=== PATIENT | female | born 1990 | race Caucasian/White ===

== ENCOUNTER 2019-05-02 10:59 | Inpatient (IN) | payer MEDICAID ==
[2019-05-02 12:04] LABS: ADD MAN DIFF? NO
[2019-05-02 12:26] LABS: WHITE BLOOD COUNT 10.7 10^3/ul (4.8-10.8)
[2019-05-02 12:26] LABS: BASOPHILS % 0.4 % (0.0-2.0); EOSINOPHILS # 0.1 10^3/ul (0.0-0.5); EOSINOPHILS % 0.6 % (0.0-7.0); HEMATOCRIT 39.1 % (37.0-47.0); HEMOGLOBIN 13.8 g/dl (12.0-16.0); LYMPHOCYTES # 2.5 10^3/ul (0.8-2.9); LYMPHOCYTES % 23.5 % (15.0-51.0); MEAN CORPUSCULAR HEMOGLOBIN 30.7 pg (29.0-33.0); MEAN CORPUSCULAR HGB CONC 35.3 g/dl (32.0-37.0); MEAN CORPUSCULAR VOLUME 87.1 fl (82.0-101.0); MONOCYTE # 0.9 10^3/ul (0.3-0.9); MONOCYTES % 8.1 % (0.0-11.0); NEUTROPHIL # 7.1 10^3/ul (1.6-7.5); NEUTROPHILS % 66.6 % (39.0-77.0); PLATELET COUNT 186 10^3/UL (140-415); RED BLOOD COUNT 4.49 10^6/ul (4.20-5.40); RED CELL DISTRIBUTION WIDTH 13.7 % (11.5-14.5)
[2019-05-02 12:29] LABS: ADD UMIC YES; UR ASCORBIC ACID 40 mg/dL (NEGATIVE); UR BACTERIA FEW /HPF (NONE SEEN); UR BILIRUBIN (Dip) NEGATIVE (NEGATIVE); UR BLOOD (Dip) NEGATIVE (NEGATIVE); UR CLARITY SLIGHTLY CLOUDY (CLEAR); UR COLOR AMBER (YELLOW); UR GLUCOSE (Dip) NEGATIVE (NEGATIVE); UR KETONES (Dip) NEGATIVE (NEGATIVE); UR LEUKOCYTE ESTERASE (Dip) NEGATIVE Leu/ul (NEGATIVE); UR MUCUS MODERATE /HPF (NONE SEEN); UR NITRITE (Dip) NEGATIVE (NEGATIVE); UR RBC 3 /HPF (0-5); UR SPECIFIC GRAVITY (Dip) 1.027 (1.003-1.030); UR SQUAMOUS EPITHELIAL CELL FEW /HPF (FEW); UR TOTAL PROTEIN (Dip) 3+ mg/dl (NEGATIVE); UR UROBILINOGEN (Dip) NEGATIVE (NEGATIVE); UR WBC 8 /HPF (0-5)
[2019-05-02 12:31] LABS: ALANINE AMINOTRANSFERASE 21 IU/L (13-69); ALBUMIN 3.2 g/dl (3.3-4.9); ALBUMIN/GLOBULIN RATIO 1.03; ALKALINE PHOSPHATASE 110 IU/L (42-121); ANION GAP 8 (5-13); ASPARTATE AMINO TRANSFERASE 25 IU/L (15-46); BILIRUBIN,INDIRECT 0.3 mg/dl (0-1.1); BILIRUBIN,TOTAL 0.3 mg/dl (0.2-1.3); BLOOD UREA NITROGEN 8 mg/dl (7-20); CALCIUM 9.1 mg/dl (8.4-10.2); CARBON DIOXIDE 21 mmol/L (21-31); CHLORIDE 109 mmol/L (97-110); CREATININE 0.57 mg/dl (0.44-1.00); Estimated GFR > 60 mL/min (>60); GLUCOSE 87 mg/dl (70-220); INR 0.82; POTASSIUM 4.5 mmol/L (3.5-5.1); PROTIME 11.4 Sec (11.9-14.9); PT RATIO 0.9; SODIUM 138 mmol/L (135-144); TOTAL PROTEIN 6.3 g/dl (6.1-8.1); URIC ACID 6.9 mg/dl (3.1-7.9)
[2019-05-02 12:32] LABS: PARTIAL THROMBOPLASTIN TIME 28.1 Sec (23.0-35.0)
[2019-05-02] MEDS ORDERED: CA GLUCONATE (GM) 10% 10ML INJ IV (13:30)
[2019-05-02] MEDS ORDERED: hydrALAzine 20 MG INJ IV (13:30)
[2019-05-02] MEDS: LACTATED RINGER'S 1,000 ML IV (13:54)
[2019-05-02] MEDS: MAGNESIUM SULFATE 4 GM/100 ML 100 ML IV (13:56)
[2019-05-02] MEDS: MAGNESIUM SULFATE 20 GM/500 ML 500 ML IV (14:25)
[2019-05-02] MEDS: BETAMET NA PHOS/AC(6 MG/ML) 2 ML INJ SYG IM (14:27)
[2019-05-03 01:06] LABS: MAGNESIUM 6.4 mg/dl (1.7-2.5)
[2019-05-03] MEDS: LACTATED RINGER'S 1,000 ML IV ×3 (01:11→19:44)
[2019-05-03] MEDS: MAGNESIUM SULFATE 20 GM/500 ML 500 ML IV (01:15)
[2019-05-03 06:39] LABS: MAGNESIUM 6.5 mg/dl (1.7-2.5)
[2019-05-03] MEDS: PRENATAL VITAMIN PO (09:36)
[2019-05-03] MEDS: BETAMET NA PHOS/AC(6 MG/ML) 2 ML INJ SYG IM (14:47)
[2019-05-03 22:07] LABS: COLLECTION PERIOD 24 hrs
[2019-05-03 23:08] LABS: VOLUME 1300 mls
[2019-05-03 23:09] LABS: 24HR URINE TOTAL PROTEIN > 600.0 mg/24hrs (42.0-225.0)
[2019-05-03 23:19] LABS: COLLECTION PERIOD 24 hrs; CREATININE CLEARANCE 116.1 mls/min (84.0-162.0); CREATININE,URINE RANDOM 73.31 mg/dl (20-320); SCRET 0.57 mg/dl (0.44-1.00); VOLUME 1300 ml/24hrs
[2019-05-04] MEDS: LACTATED RINGER'S 1,000 ML IV ×3 (04:20→23:23)
[2019-05-04] MEDS: PRENATAL VITAMIN PO (08:22)
[2019-05-04] MEDS: DOCUSATE SODIUM 100 MG CAP PO (13:24)
[2019-05-04] MEDS: FERROUS SULFATE (EC) 325 MG TAB PO (13:24)
[2019-05-04] MEDS: ACETAMINOPHEN 325 MG TAB PO (14:22)
[2019-05-04] MEDS: LABETALOL HCL 20MG INJ IV ×2 (14:44→15:25)
[2019-05-04] MEDS ORDERED: MAGNESIUM SULFATE 4 GM/100 ML 100 ML (15:28)
[2019-05-04] MEDS ORDERED: CA GLUCONATE (GM) 10% 10ML INJ IV (15:30)
[2019-05-04] MEDS: MAGNESIUM SULFATE 4 GM/100 ML 100 ML IV (15:44)
[2019-05-04] MEDS ORDERED: MAGNESIUM SULFATE 4 GM/100 ML 100 ML IVPB (16:00)
[2019-05-04] MEDS: MAGNESIUM SULFATE 20 GM/500 ML 500 ML IV (16:04)
[2019-05-04 19:01] LABS: MAGNESIUM 4.5 mg/dl (1.7-2.5)
[2019-05-05 01:00] LABS: MAGNESIUM 5.8 mg/dl (1.7-2.5)
[2019-05-05] MEDS: MAGNESIUM SULFATE 20 GM/500 ML 500 ML IV ×4 (01:29→20:51)
[2019-05-05] MEDS: DEXTROSE 5%-LR 1,000 ML IV (04:41)
[2019-05-05 07:49] LABS: MAGNESIUM 5.4 mg/dl (1.7-2.5)
[2019-05-05] MEDS ORDERED: CEFAZOLIN 2 GM/50 ML (PMX) 50 ML IVPB (08:08)
[2019-05-05] MEDS: LABETALOL HCL 20MG INJ IV ×2 (08:15→08:43)
[2019-05-05] MEDS ORDERED: morphine SULFATE/PF (10 MG/10 ML) INJ (08:56)
[2019-05-05] MEDS ORDERED: METOCLOPRAMIDE 10 MG INJ (08:56)
[2019-05-05] MEDS ORDERED: KETOROLAC 30 MG INJ (08:56)
[2019-05-05] MEDS ORDERED: PHENYLephrine (100 MCG/ML) 10ML SYG (08:56)
[2019-05-05] MEDS ORDERED: ONDANSETRON 4 MG INJ (08:56)
[2019-05-05] MEDS ORDERED: OXYTOCIN 10 UNIT INJ (08:56)
[2019-05-05] MEDS ORDERED: DEXAMETHASONE 4 MG/ML 1 ML INJ (08:56)
[2019-05-05] MEDS: ONDANSETRON 4 MG INJ IV (09:00)
[2019-05-05] MEDS ORDERED: MEPERIDINE 100 MG INJ (09:31)
[2019-05-05] MEDS ORDERED: HYDROmorphONE 0.5 MG/0.5 ML SYG IV ×2 (10:00)
[2019-05-05] MEDS ORDERED: morphine 2 MG INJ IV ×2 (10:00)
[2019-05-05] MEDS ORDERED: NALOXONE (0.4 MG/ML) INJ IV (10:00)
[2019-05-05] MEDS ORDERED: ONDANSETRON 4 MG INJ IV (10:00)
[2019-05-05] MEDS ORDERED: KETOROLAC 30 MG INJ IV (10:00)
[2019-05-05] MEDS ORDERED: ACETAMINOPHEN 500 MG TAB PO (10:00)
[2019-05-05] MEDS ORDERED: NALBUPHINE HCL (10 MG/1 ML) INJ IV (10:00)
[2019-05-05] MEDS ORDERED: DIPHENHYDRAMINE 50 MG INJ IV (10:00)
[2019-05-05] MEDS ORDERED: HYDROCODONE/APAP (5/325) TAB PO (10:00)
[2019-05-05] MEDS: CITRIC ACID/NA CITRATE 30 ML CUP PO (12:45)
[2019-05-05] MEDS: LACTATED RINGER'S 1,000 ML IV (13:01)
[2019-05-05] MEDS: OXYTOCIN 30 UNITS/LR 500 ML IV ×4 (13:01→21:59)
[2019-05-05] MEDS ORDERED: OXYTOCIN 30 UNITS/LR 500 ML IV (13:30)
[2019-05-05] MEDS ORDERED: NA PHOSPHATE/BIPHOS 133 ML ENEMA PR (13:30)
[2019-05-05] MEDS ORDERED: LANOLIN HPA 1 PKT TOP (13:30)
[2019-05-05] MEDS ORDERED: MISOPROSTOL 200 MCG TAB PR (13:30)
[2019-05-05] MEDS ORDERED: CARBOPROST 250 MCG INJ IM (13:30)
[2019-05-05] MEDS ORDERED: METHYLERGONOVINE 0.2 MG INJ IM (13:30)
[2019-05-05] MEDS ORDERED: NACL 0.9% 3 ML SYG IV (13:30)
[2019-05-05] MEDS: IBUPROFEN 800 MG TAB PO ×2 (14:00→21:56)
[2019-05-05] MEDS: LABETALOL 100 MG TAB PO (19:00)
[2019-05-05 19:27] LABS: MAGNESIUM 6.4 mg/dl (1.7-2.5)
[2019-05-06 01:39] LABS: MAGNESIUM 6.9 mg/dl (1.7-2.5)
[2019-05-06] MEDS: OXYTOCIN 30 UNITS/LR 500 ML IV ×3 (04:30→08:30)
[2019-05-06] MEDS: IBUPROFEN 800 MG TAB PO ×3 (06:12→22:02)
[2019-05-06 06:43] LABS: ADD MAN DIFF? NO
[2019-05-06 07:00] LABS: BASOPHILS % 0.1 % (0.0-2.0); EOSINOPHILS % 0.1 % (0.0-7.0); HEMATOCRIT 35.5 % (37.0-47.0); HEMOGLOBIN 12.3 g/dl (12.0-16.0); LYMPHOCYTES # 1.8 10^3/ul (0.8-2.9); LYMPHOCYTES % 11.9 % (15.0-51.0); MEAN CORPUSCULAR HEMOGLOBIN 30.5 pg (29.0-33.0); MEAN CORPUSCULAR HGB CONC 34.6 g/dl (32.0-37.0); MEAN CORPUSCULAR VOLUME 88.1 fl (82.0-101.0); MEAN PLATELET VOLUME 11.7 fl (7.4-10.4); MONOCYTE # 1.3 10^3/ul (0.3-0.9); MONOCYTES % 8.8 % (0.0-11.0); NEUTROPHIL # 11.5 10^3/ul (1.6-7.5); NEUTROPHILS % 77.5 % (39.0-77.0); PLATELET COUNT 161 10^3/UL (140-415); RED BLOOD COUNT 4.03 10^6/ul (4.20-5.40); RED CELL DISTRIBUTION WIDTH 13.5 % (11.5-14.5)
[2019-05-06 07:00] LABS: WHITE BLOOD COUNT 14.8 10^3/ul (4.8-10.8)
[2019-05-06] MEDS: LABETALOL 200 MG TAB PO ×2 (08:32→20:59)
[2019-05-06 22:15] LABS: RAPID PLASMA REAGIN NONREACTIVE (NR)
[2019-05-07] MEDS: IBUPROFEN 800 MG TAB PO ×3 (05:36→21:32)
[2019-05-07] MEDS: LABETALOL 200 MG TAB PO ×2 (09:21→21:32)
[2019-05-07] MEDS: HYDROCODONE/APAP (5/325) TAB PO (19:58)
[2019-05-08] MEDS: HYDROCODONE/APAP (5/325) TAB PO (03:51)
[2019-05-08] MEDS: IBUPROFEN 800 MG TAB PO ×3 (05:56→22:04)
[2019-05-08] MEDS: MEASLES,MUMPS,RUBELLA VACCINE INJ SC* (09:00)
[2019-05-08] MEDS: LABETALOL 200 MG TAB PO ×4 (09:59→22:04)
[2019-05-08] MEDS: NIFEdipine (XL) 30 MG TAB PO (17:10)
[2019-05-08] MEDS: LABETALOL HCL 20MG INJ IV ×2 (18:11→19:06)
[2019-05-08] MEDS: LACTATED RINGER'S 1,000 ML IV (19:08)
[2019-05-08] MEDS: MAGNESIUM SULFATE 4 GM/100 ML 100 ML IVPB (19:18)
[2019-05-08] MEDS: MAGNESIUM SULFATE 20 GM/500 ML 500 ML IV (20:00)
[2019-05-08] MEDS ORDERED: CALCIUM GLUCONATE 10% 1 GM in DEXTROSE 5% 100 ML IVPB (21:00)
[2019-05-09 01:45] LABS: MAGNESIUM 5.2 mg/dl (1.7-2.5)
[2019-05-09] MEDS: IBUPROFEN 800 MG TAB PO ×2 (05:11→14:00)
[2019-05-09] MEDS: DIPHTH/TET/ACEL PERTUSS (ADULT) 0.5 ML VIAL IM* (05:13)
[2019-05-09] MEDS: MAGNESIUM SULFATE 20 GM/500 ML 500 ML IV (05:21)
[2019-05-09] MEDS: LABETALOL 200 MG TAB PO (06:00)
[2019-05-09 07:30] LABS: MAGNESIUM 6.2 mg/dl (1.7-2.5)
[2019-05-09] MEDS: LACTATED RINGER'S 1,000 ML IV (08:36)
[2019-05-09] MEDS ORDERED: NIFEdipine (XL) 30 MG TAB PO (09:00)
[2019-05-09] MEDS: LABETALOL 100 MG TAB PO (09:24)
== END 2019-05-09 17:30 | disposition home or self-care (01) | DRG 788 ==
LOC: OBT 10:59 → L-D 10:59 → OBT 12:45 → L-D 05-05 09:03 → PP1 05-05 12:35
PROC: 10D00Z1 Extraction of Products of Conception, Low, Open Approach (ICD-10-PCS; principal; 2019-05-05 08:30)
DX: O60.13X0 Preterm labor second trimester with preterm delivery third trimester, not applicable or unspecified (principal); O99.214 Obesity complicating childbirth; O14.14 Severe pre-eclampsia complicating childbirth; O76 Abnormality in fetal heart rate and rhythm complicating labor and delivery; Z3A.34 34 weeks gestation of pregnancy; Z37.0 Single live birth
CPT/HCPCS: 36415; 76815; 76818; 80053; 81001; 82575; 83735; 84156; 84560; 85025; 85384; 85610; 85730; 86592; 86900; 86901; 88304; 88307; 99464